=== PATIENT | female | born 1995 | race Caucasian/White ===

== ENCOUNTER 2019-04-24 07:59 | Emergency (ER) | payer BC, MEDICAID ==
[~2019-04-24] VITALS: Ht 152.4 cm; Wt 92.7 kg
[~2019-04-24 07:59] MED LIST: IBUP-1222 PO; OXYC-302 PO
[2019-04-24 08:00] VITALS: BP 112/51
[2019-04-24] MEDS ORDERED: DIPHENHYDRAMINE 50 MG/ML, 1ML ONE (08:30)
[2019-04-24] MEDS ORDERED: PROCHLORPERAZINE 5 MG/ML, 2ML ONE (08:30)
[2019-04-24] MEDS ORDERED: DIPHENHYDRAMINE 50 MG/ML, 1ML IVPush ONE (08:30)
[2019-04-24] MEDS ORDERED: PROCHLORPERAZINE 5 MG/ML, 2ML IVPush ONE (08:30)
[2019-04-24] MEDS ORDERED: SODIUM CHLORIDE 0.9% 1,000ML IVBOLUS ONE (08:30)
[2019-04-24] MEDS ORDERED: SODIUM CHLORIDE FLUSH 10ML SYR IVF ONE (08:30)
--- NOTE | 2019-04-24 08:55 | NUR ---
IV ESTABLISHED AND PT MEDICATED PER MAR, IVF INFUSING. CALL LIGHT WITHIN REACH, PTS FAMILY AT BEDSIDE.
[2019-04-24] MEDS ORDERED: KETOROLAC 30 MG/1 ML ONE (09:33)
--- NOTE | 2019-04-24 09:39 | NUR ---
PT WOULD LIKE TO TRY TORADOL, PT HAS KNOWN ALLERGY TO TORADOL WITH A RXN OF RASH WHEN SHE WAS "A TEENAGER", PT MEDICATED WITH BENADRYL AND PER AGREEMENT WITH MD AND PT OK TO GIVE TORADOL AT THIS TIME. PT PLACED ON MONITOR AND MEDICATED PER MAR
[2019-04-24] MEDS ORDERED: KETOROLAC 30 MG/1 ML IVPush ONE (10:00)
== END 2019-04-24 10:40 | disposition home or self-care (01) ==
LOC: ED 09:50
DX: G43.109 Migraine with aura, not intractable, without status migrainosus (principal)
CPT/HCPCS: 96374; 96375; 99284; J0780; J1200; J1885; J7030

== ENCOUNTER 2019-05-06 15:05 | Emergency (ER) | payer BC, MEDICAID ==
[~2019-05-06] VITALS: Ht 152.4 cm; Wt 97.1 kg
--- NOTE | 2019-05-06 15:45 | NUR ---
JORDAN SINCE TUESDAY, PHOTOPHOBIA AND VOMITING
[2019-05-06] MEDS ORDERED: DIPHENHYDRAMINE 50 MG/ML, 1ML ONE (15:52)
[2019-05-06] MEDS ORDERED: DEXAMETHASONE 4 MG/ML, 1ML ONE (15:52)
[2019-05-06] MEDS ORDERED: PROCHLORPERAZINE 5 MG/ML, 2ML ONE (15:52)
[2019-05-06] MEDS ORDERED: SODIUM CHLORIDE 0.9% 1,000ML IVBOLUS ONE (16:00)
[2019-05-06] MEDS ORDERED: DIPHENHYDRAMINE 50 MG/ML, 1ML IVPush ONE (16:00)
[2019-05-06] MEDS ORDERED: SODIUM CHLORIDE FLUSH 10ML SYR IVF ONE (16:00)
[2019-05-06] MEDS ORDERED: DEXAMETHASONE 4 MG/ML, 1ML IVPush ONE (16:00)
[2019-05-06] MEDS ORDERED: PROCHLORPERAZINE 5 MG/ML, 2ML IVPush ONE (16:00)
--- NOTE | 2019-05-06 16:07 | NUR ---
MEDICATED NOTED ON MAR. PT FELT LIKE JORDAN WORSENED IMMEDIATELY AFTER DECADRON.
[2019-05-06] MEDS ORDERED: KETOROLAC 30 MG/1 ML ONE (16:12)
--- NOTE | 2019-05-06 16:18 | NUR ---
TORADOL GIVEN AFTER PRECURSERY BENADRYL. PT STATES PREVIOUS REACTION TO THE MED WAS A RASH ON HER CHEST. PT STATES THE STABBING PAIN THAT SHE GOT IN HER TEMPLES AFTER RECEIVING DECADRON HAS SUBSIDED AND NOW SHE HAS THROBBING AT HER TEMPLES. LIGHTS TURNED OUT AND PT RESTING WITH EYES CLOSED
[2019-05-06] MEDS ORDERED: KETOROLAC 30 MG/1 ML IVPush ONE (16:30)
[2019-05-06 18:05] VITALS: BP 104/45
--- NOTE | 2019-05-06 18:05 | NUR ---
JORDAN MUCH IMPROVED. DISCHARGE GIVEN
== END 2019-05-06 18:08 | disposition home or self-care (01) ==
LOC: ED 17:55
DX: G43.019 Migraine without aura, intractable, without status migrainosus (principal)
CPT/HCPCS: 96374; 96375; 99284; J0780; J1100; J1200; J1885; J7030

== ENCOUNTER 2019-05-24 18:27 | Emergency (ER) | payer BC, MEDICAID ==
[~2019-05-24] VITALS: Ht 152.4 cm; Wt 98.2 kg
[2019-05-24] MEDS ORDERED: KETOROLAC 30 MG/1 ML ONE (18:58)
[2019-05-24] MEDS ORDERED: SODIUM CHLORIDE FLUSH 10ML SYR IVF ONE (19:00)
[2019-05-24] MEDS ORDERED: PROCHLORPERAZINE 5 MG/ML, 2ML IVPush ONE ×2 (19:00→20:00)
[2019-05-24] MEDS ORDERED: KETOROLAC 30 MG/1 ML IVPush ONE (19:00)
[2019-05-24] MEDS ORDERED: SODIUM CHLORIDE 0.9% 1,000ML IVBOLUS ONE (19:00)
[2019-05-24] MEDS ORDERED: DIPHENHYDRAMINE 50 MG/ML, 1ML IVPush ONE (19:00)
[2019-05-24 19:13] LABS: BASOPHILS # (AUTO) 0.04 x10^3/uL (0-0.1); BASOPHILS % (AUTO) 0 % (0-1); EOSINOPHILS # (AUTO) 0.16 x10^3/uL (0-0.4); EOSINOPHILS % (AUTO) 2 % (1-7); LYMPHOCYTES # (AUTO) 2.36 x10^3/uL (1-3.4); LYMPHOCYTES % (AUTO) 25 % (22-44); MD NO; MEAN CORPUSCULAR HEMOGLOBIN 30.7 pg (27.0-34.8); MEAN CORPUSCULAR HGB CONC 33.7 g/dL (32.4-35.8); MEAN CORPUSCULAR VOLUME 91.1 fL (80-100); MEAN PLATELET VOLUME 9.6 fL (7.4-10.4); MONOCYTES # (AUTO) 0.29 x10^3/uL (0.2-0.8); MONOCYTES % (AUTO) 3 % (2-9); NEUTROPHILS # (AUTO) 6.44 x10^3/uL (1.8-6.8); NEUTROPHILS % (AUTO) 69 % (42-75); PLATELET COUNT 221 x10^3/uL (130-400); RED BLOOD COUNT 4.21 x10^6/uL (3.82-5.3); RED CELL DISTRIBUTION WIDTH 13.9 % (9.6-15.2)
--- NOTE | 2019-05-24 19:19 | NUR ---
THIS IS A 23Y F THAT COMES IN TONIGHT FOR MIGRAINE LASTING 4DAYS WITH COUGH AND PAINFUL DEEP INSPIRATION. PT STS SHE HAS A DRY COUGH AND HAS BEEN UNABLE TO SLEEP FOR 4DAYS WELL. PT CONNECTED TO ALL MONITORING VSS, NADN PT SPEAKING IN FULL SENTENCES AND LAUGHING. PIV STARTED, FLUIDS INFUSING WITHOUT DIFFICULTY
[2019-05-24 19:22] LABS: ANION GAP 7 mmol/L (5-15); CALCIUM 8.6 mg/dL (8.5-10.1); CHLORIDE 108 mmol/L (98-107); CREATININE 0.77 mg/dL (0.55-1.02)
--- NOTE | 2019-05-24 19:27 | NUR ---
PT MEDICATED PER MAR
--- NOTE | 2019-05-24 20:10 | NUR ---
PT UP TO RESTROOM STEADY GAIT NADN.
--- NOTE | 2019-05-24 20:20 | NUR ---
PT TO CT AT THIS TIME
[2019-05-24] MEDS ORDERED: OMNIPAQUE 350 MG/ML, 100ML BOTTLE ONE (20:36)
[2019-05-24 20:42] VITALS: BP 104/62
--- NOTE | 2019-05-24 20:43 | NUR ---
PT BACK FROM CT. ERP AT BEDSIDE TO ASSESS PT
[2019-05-24] MEDS ORDERED: HYDROmorphone 1 MG/ML, 1ML INJ IVPush PRN (21:00)
[2019-05-24] MEDS ORDERED: HYDROmorphone 2 MG/ML, 1ML ONE (21:01)
--- NOTE | 2019-05-24 21:06 | NUR ---
PT MEDICATED PER MAR, PHOTOGRAPHER AT BEDSIDE TO ASSESS PT AND DISCUSS POC
--- NOTE | 2019-05-24 21:16 | NUR ---
pharmacy called for meds at this time.
[2019-05-24] MEDS ORDERED: RIVAROXABAN 15 MG TABLET PO ONE (21:30)
== END 2019-05-24 22:41 | disposition home or self-care (01) ==
LOC: ED 18:41
DX: I26.99 Other pulmonary embolism without acute cor pulmonale (principal); G43.909 Migraine, unspecified, not intractable, without status migrainosus; R07.89 Other chest pain; R11.2 Nausea with vomiting, unspecified
CPT/HCPCS: 36415; 70450; 71275; 80048; 82040; 84703; 85025; 85379; 93005; 96361; 96374; 96375; 99285; J0780; J1170; J1200; J1885; J7030; Q9967

== ENCOUNTER 2019-05-26 20:37 | Emergency (ER) | payer BC, MEDICAID ==
[~2019-05-26] VITALS: Ht 152.4 cm; Wt 99.3 kg
--- NOTE | 2019-05-26 21:02 | NUR ---
PT TO ROOM 5 PER PEDIS WITH MOTHER. PT WAS DIAGNOSED WITH 2 PE 3 DAYS AGO. PT WAS STARTED ON XEROLTO AND HAS BEEN TAKING MEDICATIONS PRESCRIBED. TODAY PATIENT STARTED TO GET A MIGRAINE, AND SHE DOESN'T THINK SHE CAN HANDLE BOTH THE PAIN OF A MIGRAINE AND THE PAIN IN HER CHEST. PT HAS TAKEN 25MG AMITRYPTALINE AND 2MG XANAX PRIOR TO COMING. PT IS VERY LETHARGIC WITH SLOWED SPEACH, AND DROOPY EYES.
[2019-05-26] MEDS ORDERED: SODIUM CHLORIDE 0.9% 1,000ML IVBOLUS ONE (21:30)
[2019-05-26] MEDS ORDERED: MORPHINE SULFATE 4 MG/ML, 1ML IVPush PRN (21:30)
[2019-05-26] MEDS ORDERED: SODIUM CHLORIDE FLUSH 10ML SYR IVF ONE (21:30)
[2019-05-26] MEDS ORDERED: ONDANSETRON 2MG/ML, 2ML IVPush ONE (21:30)
[2019-05-26] MEDS ORDERED: KETOROLAC 30 MG/1 ML ONE (21:45)
[2019-05-26] MEDS ORDERED: MORPHINE SULFATE 4 MG/ML, 1ML ONE (21:46)
--- NOTE | 2019-05-26 21:53 | NUR ---
IV STARTED, LAB SENT AND IV TORADOL GIVEN FOR PAIN. MD IN TO SEE PATIENT. WILL CONTINUE TO MONITOR PATIENT.
[2019-05-26 21:59] LABS: BASOPHILS # (AUTO) 0.07 x10^3/uL (0-0.1); BASOPHILS % (AUTO) 1 % (0-1); EOSINOPHILS # (AUTO) 0.18 x10^3/uL (0-0.4); EOSINOPHILS % (AUTO) 3 % (1-7); LYMPHOCYTES # (AUTO) 2.13 x10^3/uL (1-3.4); LYMPHOCYTES % (AUTO) 33 % (22-44); MD NO; MEAN CORPUSCULAR HEMOGLOBIN 30.7 pg (27.0-34.8); MEAN CORPUSCULAR HGB CONC 33.6 g/dL (32.4-35.8); MEAN CORPUSCULAR VOLUME 91.4 fL (80-100); MEAN PLATELET VOLUME 9.8 fL (7.4-10.4); MONOCYTES # (AUTO) 0.29 x10^3/uL (0.2-0.8); MONOCYTES % (AUTO) 5 % (2-9); NEUTROPHILS # (AUTO) 3.81 x10^3/uL (1.8-6.8); NEUTROPHILS % (AUTO) 59 % (42-75); PLATELET COUNT 234 x10^3/uL (130-400); RED BLOOD COUNT 4.39 x10^6/uL (3.82-5.3); RED CELL DISTRIBUTION WIDTH 13.8 % (9.6-15.2)
[2019-05-26] MEDS ORDERED: KETOROLAC 30 MG/1 ML IVPush ONE (22:00)
[2019-05-26 22:07] LABS: ALANINE AMINOTRANSFERASE 19 U/L (12-78); ANION GAP 7 mmol/L (5-15); CALCIUM 8.9 mg/dL (8.5-10.1); CHLORIDE 108 mmol/L (98-107); CREATININE 0.92 mg/dL (0.55-1.02)
[2019-05-26 22:11] LABS: ALKALINE PHOSPHATASE 69 U/L (45-117); TOTAL PROTEIN 7.4 g/dL (6.4-8.2); TROPONIN I < 0.015 ng/mL (0.000-0.045)
[2019-05-26 22:14] LABS: BILIRUBIN,TOTAL < 0.1 mg/dL (0.2-1.0)
[2019-05-26 22:59] VITALS: BP 99/54
== END 2019-05-26 23:01 | disposition home or self-care (01) ==
LOC: ED 20:55
DX: I26.09 Other pulmonary embolism with acute cor pulmonale (principal); R07.9 Chest pain, unspecified; G43.909 Migraine, unspecified, not intractable, without status migrainosus; R00.0 Tachycardia, unspecified
CPT/HCPCS: 36415; 80053; 84484; 85025; 93005; 96374; 99284; J1885; J7030

== ENCOUNTER 2019-06-04 17:40 | Emergency (ER) | payer BC, MEDICAID ==
[~2019-06-04] VITALS: Ht 167.6 cm; Wt 98.5 kg
[2019-06-04 18:02] LABS: BASOPHILS # (AUTO) 0.06 x10^3/uL (0-0.1); BASOPHILS % (AUTO) 1 % (0-1); EOSINOPHILS # (AUTO) 0.13 x10^3/uL (0-0.4); EOSINOPHILS % (AUTO) 2 % (1-7); LYMPHOCYTES % (AUTO) 33 % (22-44); MD NO; MEAN CORPUSCULAR HEMOGLOBIN 30.6 pg (27.0-34.8); MEAN CORPUSCULAR HGB CONC 33.5 g/dL (32.4-35.8); MEAN CORPUSCULAR VOLUME 91.3 fL (80-100); MEAN PLATELET VOLUME 8.8 fL (7.4-10.4); MONOCYTES # (AUTO) 0.39 x10^3/uL (0.2-0.8); MONOCYTES % (AUTO) 4 % (2-9); NEUTROPHILS # (AUTO) 5.45 x10^3/uL (1.8-6.8); NEUTROPHILS % (AUTO) 60 % (42-75); PLATELET COUNT 321 x10^3/uL (130-400); RED BLOOD COUNT 4.68 x10^6/uL (3.82-5.3); RED CELL DISTRIBUTION WIDTH 13.7 % (9.6-15.2)
[2019-06-04 18:15] LABS: ALANINE AMINOTRANSFERASE 52 U/L (12-78); ALBUMIN 3.5 g/dL (3.4-5.0); ANION GAP 7 mmol/L (5-15); CHLORIDE 106 mmol/L (98-107); CREATININE 0.79 mg/dL (0.55-1.02); INTERNATIONAL NORMALIZED RATIO 0.99 (0.93-1.1); PROTHROMBIN TIME 10.5 Seconds (9.6-11.5)
[2019-06-04 18:20] LABS: ALKALINE PHOSPHATASE 67 U/L (45-117); BILIRUBIN,TOTAL 0.1 mg/dL (0.2-1.0); TOTAL PROTEIN 8.1 g/dL (6.4-8.2); TROPONIN I < 0.015 ng/mL (0.000-0.045)
[2019-06-04] MEDS ORDERED: ONDANSETRON 2MG/ML, 2ML IVPush ONE (18:30)
[2019-06-04] MEDS ORDERED: ONDANSETRON 2MG/ML, 2ML ONE (18:37)
[2019-06-04] MEDS ORDERED: MORPHINE SULFATE 4 MG/ML, 1ML ONE ×2 (18:37→19:11)
[2019-06-04] MEDS: MORPHINE SULFATE 4 MG/ML, 1ML IVPush PRN ×2 (18:41→19:16)
--- NOTE | 2019-06-04 19:09 | NUR ---
REPORT FROM TASK RNJEIMY.
[2019-06-04 19:17] VITALS: BP 119/70
--- NOTE | 2019-06-04 19:17 | NUR ---
PT MEDICATED PER EMAR FOR 10/31 PAIN
--- NOTE | 2019-06-04 19:37 | NUR ---
PT REPORTS LITTLE IMPROVEMENT IN PAIN WITH SECOND DOSE OF MORPHINE. ERP AWARE.
--- NOTE | 2019-06-04 20:03 | NUR ---
DC EDUCATION PROVIDED, PT DEMONSTRATES UNDERSTANDING. PT AMBULATED STEADILY TO WHEELCHAIR IN HALLWAY, WHEELED TO DC WITH RN. SO TO TRANSPORT PT HOME. PT AWARE THAT DRIVING IN DISCOURAGED WHILE ON PAIN MEDICATIONS.
== END 2019-06-04 20:05 | disposition home or self-care (01) ==
LOC: ED 19:05
DX: R07.2 Precordial pain (principal); M54.6 Pain in thoracic spine; N93.9 Abnormal uterine and vaginal bleeding, unspecified; R94.31 Abnormal electrocardiogram [ECG] [EKG]
CPT/HCPCS: 36415; 71045; 80053; 83880; 84484; 84703; 85025; 85610; 85730; 93005; 96374; 96375; 96376; 99285; J2270; J2405

== ENCOUNTER 2019-06-10 22:00 | Emergency (ER) | payer BC, MEDICAID ==
[~2019-06-10] VITALS: Ht 154.9 cm; Wt 102.2 kg
--- NOTE | 2019-06-10 22:31 | NUR ---
DIGITAL PHOTOGRAPHER: PT. AMBULATORY TO ROOM FROM LOBBY AT THIS TIME.
--- NOTE | 2019-06-10 22:37 | NUR ---
Patient presents to ER c/o migraine in temporal and frontal region x2 days. Her pain is a 9/10. Patient has nausea but denies vomiting. Patient is in obvious discomfort. Respirations even and unlabored.
[2019-06-10] MEDS ORDERED: METOCLOPRAMIDE 5 MG/ML, 2ML ONE (22:58)
[2019-06-10] MEDS ORDERED: DIPHENHYDRAMINE 50 MG/ML, 1ML ONE (22:58)
[2019-06-10] MEDS ORDERED: DIPHENHYDRAMINE 50 MG/ML, 1ML IVPush ONE (23:00)
[2019-06-10] MEDS ORDERED: SODIUM CHLORIDE 0.9% 1,000ML IVBOLUS ONE (23:00)
[2019-06-10] MEDS ORDERED: SODIUM CHLORIDE FLUSH 10ML SYR IVF ONE (23:00)
[2019-06-10] MEDS ORDERED: METOCLOPRAMIDE 5 MG/ML, 2ML IVPush ONE (23:00)
[2019-06-10] MEDS ORDERED: BUTALB/APAP/CAFFEINE 50MG/325MG/40MG PO ONE (23:00)
--- NOTE | 2019-06-10 23:16 | NUR ---
Requested Fioricet from pharmacy.
[2019-06-11] MEDS ORDERED: MAGNESIUM SULFATE PMX 2GM/50ML 50 ML IV ONE (01:00)
[2019-06-11] MEDS ORDERED: MAGNESIUM SULFATE PMX 2GM/50ML 50 ML ONE (01:12)
--- NOTE | 2019-06-11 02:00 | NUR ---
Patient states magnesium is helping. Patient tbdc after infusion complete.
[2019-06-11 02:20] VITALS: BP 96/54
--- NOTE | 2019-06-11 02:51 | NUR ---
Discharge instructions given. All questions and concerns addressed. Patient ambualtory with a steady gait. Belongings with patient.
== END 2019-06-11 02:53 | disposition home or self-care (01) ==
LOC: ED 22:58
DX: G43.709 Chronic migraine without aura, not intractable, without status migrainosus (principal)
CPT/HCPCS: 70450; 96365; 96375; 99284; J1200; J2765; J3475; J7030

== ENCOUNTER 2019-06-16 00:36 | Emergency (ER) | payer BC, MEDICAID ==
[~2019-06-16] VITALS: Ht 152.4 cm; Wt 100.0 kg
[2019-06-16 00:42] VITALS: BP 107/70
[2019-06-16] MEDS ORDERED: HYDR-3237 PO (00:49)
[2019-06-16] MEDS ORDERED: RIVA20TA PO (00:49)
--- NOTE | 2019-06-16 00:49 | NUR ---
THIS IS A 23Y F THAT COMES IN FOR FEELING SOB, PT HAS KNOWN R SIDED PE AND IS TAKING XERALTO DIRECTED. PER PT SHE HAD A FALL IN THE SHOWER AND "PASSED OUT" PT THEN PLACED CPAP ON WITH NO HELP. PT CONNECTED TO ALL MONITORING, VSS, LUIS
[2019-06-16 01:15] LABS: BASOPHILS # (AUTO) 0.03 x10^3/uL (0-0.1); BASOPHILS % (AUTO) 0 % (0-1); EOSINOPHILS # (AUTO) 0.24 x10^3/uL (0-0.4); EOSINOPHILS % (AUTO) 3 % (1-7); LYMPHOCYTES % (AUTO) 33 % (22-44); MD NO; MEAN CORPUSCULAR HEMOGLOBIN 30.8 pg (27.0-34.8); MEAN CORPUSCULAR HGB CONC 33.9 g/dL (32.4-35.8); MEAN PLATELET VOLUME 9.6 fL (7.4-10.4); MONOCYTES # (AUTO) 0.54 x10^3/uL (0.2-0.8); MONOCYTES % (AUTO) 6 % (2-9); NEUTROPHILS # (AUTO) 4.95 x10^3/uL (1.8-6.8); NEUTROPHILS % (AUTO) 58 % (42-75); PLATELET COUNT 263 x10^3/uL (130-400); RED BLOOD COUNT 4.76 x10^6/uL (3.82-5.3); RED CELL DISTRIBUTION WIDTH 13.7 % (9.6-15.2)
[2019-06-16] MEDS ORDERED: MORPHINE SULFATE 4 MG/ML, 1ML ONE (01:17)
[2019-06-16] MEDS ORDERED: ONDANSETRON 2MG/ML, 2ML ONE ×2 (01:17→02:50)
[2019-06-16 01:26] LABS: INTERNATIONAL NORMALIZED RATIO 0.94 (0.93-1.1)
[2019-06-16 01:27] LABS: ALBUMIN 3.6 g/dL (3.4-5.0); ANION GAP 7 mmol/L (5-15); CHLORIDE 110 mmol/L (98-107); CREATININE 1.05 mg/dL (0.55-1.02)
[2019-06-16] MEDS ORDERED: SODIUM CHLORIDE 0.9% 1,000ML IVBOLUS ONE (01:30)
[2019-06-16] MEDS ORDERED: SODIUM CHLORIDE FLUSH 10ML SYR IVF ONE (01:30)
[2019-06-16] MEDS ORDERED: ONDANSETRON 2MG/ML, 2ML IVPush ONE ×2 (01:30→03:00)
[2019-06-16] MEDS ORDERED: MORPHINE SULFATE 4 MG/ML, 1ML IVPush PRN (01:30)
[2019-06-16 01:32] LABS: TROPONIN I < 0.015 ng/mL (0.000-0.045)
--- NOTE | 2019-06-16 01:32 | NUR ---
PT MEDICATED PER MAR
--- NOTE | 2019-06-16 01:55 | NUR ---
PT TO CT AT THIS TIME
--- NOTE | 2019-06-16 02:10 | NUR ---
PT BACK FROM CT
--- NOTE | 2019-06-16 03:21 | NUR ---
Patient/Caregiver given discharge instructions and they have confirmed that they understand the instructions. Patient ambulatory with steady gait.
[2019-06-16] MEDS ORDERED: OMNIPAQUE 350 MG/ML, 100ML BOTTLE ONE (05:03)
== END 2019-06-16 03:30 | disposition home or self-care (01) ==
LOC: ED 00:54
DX: R07.89 Other chest pain (principal); R94.31 Abnormal electrocardiogram [ECG] [EKG]; Z86.711 Personal history of pulmonary embolism; G43.909 Migraine, unspecified, not intractable, without status migrainosus
CPT/HCPCS: 36415; 70450; 71275; 80048; 82040; 83880; 84484; 84703; 85025; 85610; 85730; 93005; 96374; 96375; 96376; 99285; J2270; J2405; J7030; Q9967

== ENCOUNTER 2019-06-29 12:54 | Emergency (ER) | payer BC, MEDICAID ==
[~2019-06-29] VITALS: Ht 152.4 cm; Wt 95.9 kg
[~2019-06-29 12:54] MED LIST changes: +HYDR-3237 PO; +RIVA20TA PO
--- NOTE | 2019-06-29 13:11 | NUR ---
THIS IS A 23 YO FEMALE WHO PRESENTS TO THE ER C/O PAINFUL URINATION WITH N/V "DUE TO THE ANTIBIOTICS AND PAIN. I GET NAUSEOUS FROM THE ANTIBIOTICS AND I DON'T HAVE A VERY HIGH PAIN TOLERANCE SO I VOMIT WHEN I'M IN PAIN." PT HAS BEEN ON LEVAQUIN X 5 DAYS. PT AO X 4. SKIN PWD. RESP EVEN AND UNLABORED.
[2019-06-29] MEDS ORDERED: ONDANSETRON 2MG/ML, 2ML ONE (13:23)
[2019-06-29] MEDS ORDERED: SODIUM CHLORIDE 0.9% 1,000ML IVBOLUS ONE (13:30)
[2019-06-29] MEDS ORDERED: ONDANSETRON 2MG/ML, 2ML IVPush ONE (13:30)
[2019-06-29] MEDS ORDERED: SODIUM CHLORIDE FLUSH 10ML SYR IVF ONE (13:30)
[2019-06-29 13:39] LABS: BASOPHILS # (AUTO) 0.02 x10^3/uL (0-0.1); BASOPHILS % (AUTO) 0 % (0-1); EOSINOPHILS # (AUTO) 0.12 x10^3/uL (0-0.4); EOSINOPHILS % (AUTO) 2 % (1-7); LYMPHOCYTES # (AUTO) 1.72 x10^3/uL (1-3.4); LYMPHOCYTES % (AUTO) 26 % (22-44); MD NO; MEAN CORPUSCULAR HEMOGLOBIN 30.7 pg (27.0-34.8); MEAN CORPUSCULAR HGB CONC 33.8 g/dL (32.4-35.8); MEAN CORPUSCULAR VOLUME 90.8 fL (80-100); MEAN PLATELET VOLUME 9.4 fL (7.4-10.4); MONOCYTES # (AUTO) 0.29 x10^3/uL (0.2-0.8); MONOCYTES % (AUTO) 4 % (2-9); NEUTROPHILS # (AUTO) 4.59 x10^3/uL (1.8-6.8); NEUTROPHILS % (AUTO) 68 % (42-75); PLATELET COUNT 228 x10^3/uL (130-400); RED BLOOD COUNT 4.71 x10^6/uL (3.82-5.3); RED CELL DISTRIBUTION WIDTH 13.7 % (9.6-15.2)
[2019-06-29 13:49] LABS: ALANINE AMINOTRANSFERASE 41 U/L (12-78); ALBUMIN 3.6 g/dL (3.4-5.0); ANION GAP 8 mmol/L (5-15); CALCIUM 9.1 mg/dL (8.5-10.1); CHLORIDE 111 mmol/L (98-107); CREATININE 1.06 mg/dL (0.55-1.02)
[2019-06-29 13:52] LABS: ALKALINE PHOSPHATASE 67 U/L (45-117); BILIRUBIN,TOTAL 0.5 mg/dL (0.2-1.0)
[2019-06-29 14:14] LABS: MICROSCOPIC INDICATED
--- NOTE | 2019-06-29 14:30 | NUR ---
PT CURRENTLY RESTING ON GURNEY. NAD NOTED. SKIN PWD. RESP EVEN AND UNLABORED. PT AWARE WE ARE WAITING FOR IVF TO FINISH. PT DENIES NEEDS AT THIS TIME. PT ON CONT BP AND O2 MONITORS. CALL LIGHT WITHIN REACH. WILL CONT TO MONITOR PT.
[2019-06-29 14:42] LABS: CULTURE INDICATED? YES
[2019-06-29 15:36] VITALS: BP 96/57
--- NOTE | 2019-06-29 15:37 | NUR ---
Patient given discharge instructions and they have confirmed that they understand the instructions. Patient ambulatory with steady gait.
== END 2019-06-29 15:38 | disposition home or self-care (01) ==
LOC: ED 13:43
DX: R11.2 Nausea with vomiting, unspecified (principal); E86.0 Dehydration; Z86.711 Personal history of pulmonary embolism
CPT/HCPCS: 36415; 80053; 81001; 83690; 84703; 85025; 87086; 96361; 96374; 99283; J2405; J7030

== ENCOUNTER 2019-09-08 21:11 | Emergency (ER) | payer BC, MEDICAID ==
[~2019-09-08] VITALS: Ht 152.4 cm; Wt 95.0 kg
--- NOTE | 2019-09-08 21:32 | NUR ---
PT REPORTS MIGRAINE JORDAN, PAIN 8.5. PER PT SHE GETS BOTOX TREATMENTS FOR MIGRAINES, LAST ONE DONE IN MAY. ERP AT BEDSIDE FOR EVAL.
[2019-09-08] MEDS ORDERED: DIPHENHYDRAMINE 50 MG/ML, 1ML ONE (21:42)
[2019-09-08] MEDS ORDERED: MORPHINE SULFATE 4 MG/ML, 1ML ONE (21:42)
[2019-09-08] MEDS ORDERED: SUMATRIPTAN 6MG/0.5ML SQ ONE ×2 (21:42→22:00)
[2019-09-08] MEDS ORDERED: PROCHLORPERAZINE 5 MG/ML, 2ML ONE (21:42)
[2019-09-08] MEDS ORDERED: MORPHINE SULFATE 4 MG/ML, 1ML IVPush PRN (22:00)
[2019-09-08] MEDS ORDERED: SODIUM CHLORIDE 0.9% 1,000ML IVBOLUS ONE (22:00)
[2019-09-08] MEDS ORDERED: DIPHENHYDRAMINE 50 MG/ML, 1ML IVPush ONE (22:00)
[2019-09-08] MEDS ORDERED: PROCHLORPERAZINE 5 MG/ML, 2ML IVPush ONE (22:00)
[2019-09-08] MEDS ORDERED: SODIUM CHLORIDE FLUSH 10ML SYR IVF ONE (22:30)
[2019-09-08 22:32] VITALS: BP 116/67
== END 2019-09-08 22:45 | disposition home or self-care (01) ==
LOC: ED 21:30
DX: G43.001 Migraine without aura, not intractable, with status migrainosus (principal)
CPT/HCPCS: 70450; 96372; 96374; 96375; 99284; J0780; J1200; J2270; J3030; J7030

== ENCOUNTER 2019-10-18 05:50 | Emergency (ER) | payer BC, MEDICAID ==
[~2019-10-18] VITALS: Ht 152.4 cm; Wt 95.3 kg
[2019-10-18] MEDS ORDERED: DIPHENHYDRAMINE 50 MG/ML, 1ML ONE (06:21)
[2019-10-18] MEDS ORDERED: PROCHLORPERAZINE 5 MG/ML, 2ML ONE (06:21)
[2019-10-18] MEDS ORDERED: SODIUM CHLORIDE 0.9% 1,000ML IVBOLUS ONE (06:30)
[2019-10-18] MEDS ORDERED: DIPHENHYDRAMINE 50 MG/ML, 1ML IVPush ONE (06:30)
[2019-10-18] MEDS ORDERED: PROCHLORPERAZINE 5 MG/ML, 2ML IVPush ONE (06:30)
[2019-10-18 07:04] VITALS: BP 95/62
--- NOTE | 2019-10-18 07:05 | NUR ---
RECEIVED REPORT FROM DANA MENDEZ RN. PT RESTING ON [facility]. NADN. [place]. PT STATES JORDAN IMPROVED FROM ARRIVAL.
[2019-10-18] MEDS ORDERED: KETOROLAC 30 MG/1 ML ONE (07:24)
[2019-10-18] MEDS ORDERED: KETOROLAC 30 MG/1 ML IVPush ONE (07:30)
== END 2019-10-18 08:10 ==
LOC: ED 08:04
DX: G43.001 Migraine without aura, not intractable, with status migrainosus (principal); Z86.711 Personal history of pulmonary embolism
CPT/HCPCS: 36415; 85379; 96361; 96374; 96375; 99284; J0780; J1200; J1885; J7030

== ENCOUNTER 2019-12-07 19:03 | Emergency (ER) | payer BC, MEDICAID ==
[~2019-12-07] VITALS: Ht 152.4 cm; Wt 97.0 kg
--- NOTE | 2019-12-07 19:31 | NUR ---
Patient presents to ER c/o JORDAN x3 days. Patient developed CP with the JORDAN yesterday but is worse today and radiates down left arm. Patient has a hx of migraines but she does not usually experience CP with it. Patient also c/o dizziness, nausea, and photophobia which is normal for patient with her HAs. Patient is in obvious discomfort. Respirations even and unlabored.
[2019-12-07] MEDS ORDERED: ACETAMINOPHEN 500 MG TABLET ONE (19:48)
[2019-12-07] MEDS ORDERED: PROCHLORPERAZINE 5 MG/ML, 2ML ONE (19:48)
[2019-12-07] MEDS ORDERED: DIPHENHYDRAMINE 50 MG/ML, 1ML ONE (19:48)
[2019-12-07 19:53] LABS: BASOPHILS % (AUTO) 0 % (0-1); EOSINOPHILS % (AUTO) 2 % (1-7); LYMPHOCYTES % (AUTO) 29 % (22-44); MEAN CORPUSCULAR HEMOGLOBIN 29.7 pg (27.0-34.8); MEAN CORPUSCULAR HGB CONC 33.2 g/dL (32.4-35.8); MEAN PLATELET VOLUME 9.3 fL (7.4-10.4); MONOCYTES % (AUTO) 4 % (2-9); NEUTROPHILS % (AUTO) 65 % (42-75); PLATELET COUNT 237 x10^3/uL (130-400); RED BLOOD COUNT 5.03 x10^6/uL (3.82-5.3); RED CELL DISTRIBUTION WIDTH 13.8 % (9.6-15.2)
[2019-12-07 20:00] LABS: MD NO
[2019-12-07] MEDS ORDERED: ACETAMINOPHEN 500 MG TABLET PO ONE (20:00)
[2019-12-07] MEDS ORDERED: DIPHENHYDRAMINE 50 MG/ML, 1ML IVPush ONE (20:00)
[2019-12-07] MEDS ORDERED: SODIUM CHLORIDE 0.9% 1,000ML IVBOLUS ONE (20:00)
[2019-12-07] MEDS ORDERED: PROCHLORPERAZINE 5 MG/ML, 2ML IV ONE (20:00)
[2019-12-07] MEDS ORDERED: SODIUM CHLORIDE FLUSH 10ML SYR IVF ONE (20:00)
[2019-12-07 20:04] LABS: ANION GAP 5 mmol/L (5-15); CALCIUM 9.3 mg/dL (8.5-10.1); CHLORIDE 106 mmol/L (98-107); CREATININE 0.81 mg/dL (0.55-1.02)
[2019-12-07 20:09] LABS: TROPONIN I < 0.015 ng/mL (0.000-0.045)
[2019-12-07 20:55] VITALS: BP 112/64
== END 2019-12-07 21:21 | disposition home or self-care (01) ==
LOC: ED 19:30
DX: G43.009 Migraine without aura, not intractable, without status migrainosus (principal); R07.89 Other chest pain; R11.2 Nausea with vomiting, unspecified
CPT/HCPCS: 36415; 71046; 80048; 84484; 84703; 85025; 85379; 93005; 96374; 96375; 99285; J0780; J1200; J7030; J7512

== ENCOUNTER 2020-04-24 22:27 | Emergency (ER) | payer BC, MEDICAID ==
[~2020-04-24] VITALS: Ht 172.7 cm; Wt 109.0 kg
[~2020-04-24 22:27] MED LIST changes: -OXYC-302 PO; +OXYC1TAB14 PO
--- NOTE | 2020-04-24 23:01 | NUR ---
Pt in CT now.
--- NOTE | 2020-04-24 23:09 | NUR ---
Back from CTA, requesting pain meds. Also has nauseated feeling. Bloods drawn and sent by lab. On monitor, NSR no ectopy, RR equal and unlabored.
[2020-04-24] MEDS ORDERED: OMNIPAQUE 350 MG/ML, 100ML BOTTLE ONE (23:25)
[2020-04-24] MEDS ORDERED: PROCHLORPERAZINE 5 MG/ML, 2ML IVPush ONE (23:30)
[2020-04-24] MEDS ORDERED: DIPHENHYDRAMINE 50 MG/ML, 1ML IVPush ONE (23:30)
[2020-04-24] MEDS ORDERED: ACETAMINOPHEN 500 MG TABLET PO ONE (23:30)
[2020-04-24 23:32] LABS: BASOPHILS % (AUTO) 1 % (0-1); EOSINOPHILS % (AUTO) 2 % (1-7); LYMPHOCYTES % (AUTO) 29 % (22-44); MEAN CORPUSCULAR HEMOGLOBIN 30.6 pg (27.0-34.8); MEAN CORPUSCULAR HGB CONC 33.8 g/dL (32.4-35.8); MEAN PLATELET VOLUME 9.5 fL (7.4-10.4); MONOCYTES % (AUTO) 5 % (2-9); NEUTROPHILS % (AUTO) 64 % (42-75); PLATELET COUNT 217 x10^3/uL (130-400); RED BLOOD COUNT 4.31 x10^6/uL (3.82-5.3); RED CELL DISTRIBUTION WIDTH 13.6 % (9.6-15.2)
[2020-04-24 23:33] LABS: ALBUMIN 3.4 g/dL (3.4-5.0); ANION GAP 6 mmol/L (5-15); CALCIUM 8.4 mg/dL (8.5-10.1); CHLORIDE 110 mmol/L (98-107); MD NO
[2020-04-24] MEDS ORDERED: ACETAMINOPHEN 500 MG TABLET ONE (23:37)
[2020-04-24] MEDS ORDERED: PROCHLORPERAZINE 5 MG/ML, 2ML ONE (23:37)
[2020-04-24] MEDS ORDERED: DIPHENHYDRAMINE 50 MG/ML, 1ML ONE (23:37)
[2020-04-24 23:38] LABS: CREATININE 0.81 mg/dL (0.55-1.02)
[2020-04-24] MEDS ORDERED: SUMATRIPTAN 6MG/0.5ML SQ ONE (23:52)
--- NOTE | 2020-04-24 23:56 | NUR ---
Toradol held, pt allergic. ERP changed to imitrex sq.
[2020-04-24 23:57] LABS: INTERNATIONAL NORMALIZED RATIO 0.97 (0.93-1.1); PROTHROMBIN TIME 10.4 Seconds (9.6-11.5)
[2020-04-25] MEDS ORDERED: SUMATRIPTAN 6MG/0.5ML SQ PRN
[2020-04-25] MEDS ORDERED: KETOROLAC 30 MG/1 ML IVPush ONE
[2020-04-25] MEDS ORDERED: AMITRIPTYLINE 50 MG TABLET PO ONE (00:30)
[2020-04-25 00:45] VITALS: BP 135/74
--- NOTE | 2020-04-25 00:45 | NUR ---
IV DC, PT STATES FEELS BETTER, RX AND DC PAPERS GIVEN. PT VERBALIZES UNDERSTANDING OF INSTRUCT AND F/U. TO RETURN TO ER IF WORSE OR CONCERNS.
--- NOTE | 2020-04-25 01:02 | NUR ---
dc home after po elavil.
== END 2020-04-25 01:04 | disposition home or self-care (01) ==
LOC: ED 23:51
DX: G43.409 Hemiplegic migraine, not intractable, without status migrainosus (principal); R53.1 Weakness
CPT/HCPCS: 36415; 70450; 70496; 70498; 80048; 82040; 84703; 85025; 85610; 85730; 93005; 96372; 96374; 96375; 99285; J0780; J1200; J1885; J3030; Q9967

== ENCOUNTER 2020-08-25 20:35 | Emergency (ER) | payer BC, MEDICAID ==
[~2020-08-25] VITALS: Ht 152.4 cm; Wt 105.8 kg
--- NOTE | 2020-08-25 21:22 | NUR ---
RESTAURANT HOST: PT TO ROOM FROM LOBBY
[2020-08-25] MEDS ORDERED: PROCHLORPERAZINE 5 MG/ML, 2ML IVPush ONE (22:00)
[2020-08-25] MEDS ORDERED: DIPHENHYDRAMINE 25 MG CAPSULE PO ONE (22:00)
--- NOTE | 2020-08-25 22:18 | NUR ---
PT TO CT VIA [facility] [place] AT THIS TIME. PT MRI SCREEN COMPLETE AND FAXED TO MRI.
[2020-08-25] MEDS ORDERED: LORazepam 2 MG/ML, 1ML ONE (22:26)
[2020-08-25] MEDS ORDERED: LORazepam 2 MG/ML, 1ML IVPush ONE (22:30)
--- NOTE | 2020-08-25 22:44 | NUR ---
PT MEDICATED IN MRI FOR ANXIETY
[2020-08-25] MEDS ORDERED: GADOTERATE 10 MMOL/20ML SYR ONE (23:07)
--- NOTE | 2020-08-25 23:14 | NUR ---
PT STILL IN MRI AT THIS TIME.
[2020-08-25] MEDS ORDERED: PROCHLORPERAZINE 5 MG/ML, 2ML ONE (23:16)
[2020-08-25] MEDS ORDERED: DIPHENHYDRAMINE 25 MG CAPSULE ONE (23:16)
--- NOTE | 2020-08-25 23:44 | NUR ---
PT BACK FROM MRI AT THIS TIME. PT MEDICATED PER APR. PT ATTACHED TO VS AND CARDIAC MONITORS. TECH AT FOR EKG. LAB AT FOR BLOOD DRAW.
--- NOTE | 2020-08-26 00:04 | NUR ---
PT ASLEEP IN [facility] AT THIS TIME.
[2020-08-26 00:13] LABS: BASOPHILS % (AUTO) 1 % (0-1); EOSINOPHILS % (AUTO) 3 % (1-7); LYMPHOCYTES % (AUTO) 37 % (22-44); MEAN CORPUSCULAR HEMOGLOBIN 30.9 pg (27.0-34.8); MEAN CORPUSCULAR HGB CONC 34.2 g/dL (32.4-35.8); MEAN PLATELET VOLUME 9.4 fL (7.4-10.4); MONOCYTES % (AUTO) 4 % (2-9); NEUTROPHILS % (AUTO) 56 % (42-75); PLATELET COUNT 231 x10^3/uL (130-400); RED BLOOD COUNT 4.58 x10^6/uL (3.82-5.3); RED CELL DISTRIBUTION WIDTH 16.2 % (9.6-15.2)
[2020-08-26 00:17] LABS: ALANINE AMINOTRANSFERASE 47 U/L (12-78); ALBUMIN 3.7 g/dL (3.4-5.0); ANION GAP 7 mmol/L (5-15); CHLORIDE 108 mmol/L (98-107); CREATININE 0.66 mg/dL (0.55-1.02)
[2020-08-26 00:21] VITALS: BP_DIAS 82
[2020-08-26 00:22] LABS: ALKALINE PHOSPHATASE 77 U/L (45-117); BILIRUBIN,TOTAL 0.4 mg/dL (0.2-1.0); TOTAL PROTEIN 7.7 g/dL (6.4-8.2)
--- NOTE | 2020-08-26 01:08 | NUR ---
report of pt to violet amezquita. all questions anwered.
--- NOTE | 2020-08-26 01:21 | NUR ---
task rn:pt ambulated steady [facility]. pt denies any headache, dizziness or discomfort while walking
--- NOTE | 2020-08-26 01:46 | NUR ---
TASK RN: DC EDUCATION PROVIDED, PT DEMONSTRATES UNDERSTANDING. PT AMBULATED STEADILY TO DC WITH RN. BOYFRIEND TO TRANSPORT PT HOME.
[2020-08-26 01:47] VITALS: BP_SYST 115
== END 2020-08-26 01:49 | disposition home or self-care (01) ==
LOC: ED 22:00
DX: S09.90XA Unspecified injury of head, initial encounter (principal); G44.219 Episodic tension-type headache, not intractable; M51.26 Other intervertebral disc displacement, lumbar region; R00.9 Unspecified abnormalities of heart beat; R94.31 Abnormal electrocardiogram [ECG] [EKG]; Z88.8 Allergy status to other drugs, medicaments and biological substances; Z87.891 Personal history of nicotine dependence; X58.XXXA Exposure to other specified factors, initial encounter; Y93.89 Activity, other specified; Y92.89 Other specified places as the place of occurrence of the external cause; Y99.8 Other external cause status
CPT/HCPCS: 36415; 70450; 71045; 72157; 72158; 80053; 84703; 85025; 93005; 96374; 96375; 99285; A9575; J0780; J2060; Q0163